=== PATIENT | female | born 1990 | race Caucasian/White ===

== ENCOUNTER 2022-02-20 12:29 | Emergency (ER) | payer MEDICAID ==
[~2022-02-20] VITALS: Ht 162.6 cm; Wt 68.2 kg
[2022-02-20 12:40] VITALS: BP 120/89
== END 2022-02-20 13:30 | disposition left against medical advice (07) ==
LOC: ER 12:31
DX: S00.83XA Contusion of other part of head, initial encounter (principal); R00.0 Tachycardia, unspecified; W19.XXXA Unspecified fall, initial encounter; Y93.89 Activity, other specified; Y92.89 Other specified places as the place of occurrence of the external cause; Y99.8 Other external cause status
CPT/HCPCS: 99283